=== PATIENT | male | born 1970 | race African-American/Black ===

== ENCOUNTER 2018-08-07 13:10 | Emergency (ER) | payer OTHER ==
[~2018-08-07] VITALS: Ht 175.3 cm; Wt 100.0 kg
--- NOTE | 2018-08-07 14:18 | REP ---
RIGHT KNEE SERIES: Five views of right knee performed. 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 No acute fracture or dislocation is seen. There is mild narrowing of the lateral patellofemoral joint. IMPRESSION: Bipartite patella, a developmental anomaly. No acute fracture visualized. Electronically Signed by Roland Olvera MD 08/09/2018 12:01 P
[2018-08-07 14:21] VITALS: BP 165/110
[2018-08-07] MEDS ORDERED: IBUP80TA PO (14:40)
== END 2018-08-07 14:47 | disposition home or self-care (01) ==
LOC: M ED 13:10
DX: M25.561 Pain in right knee (principal); I10 Essential (primary) hypertension; Z72.0 Tobacco use

== ENCOUNTER 2018-08-10 11:47 | Emergency (ER) | payer OTHER ==
[~2018-08-10] VITALS: Ht 180.3 cm; Wt 108.1 kg
[~2018-08-10 11:47] MED LIST: IBUP80TA PO
--- NOTE | 2018-08-10 12:36 | REP ---
Right lower extremity Duplex Doppler venous ultrasound: Real time compression and duplex Doppler interrogation of the right lower extremity deep venous system is performed. The right common femoral, superficial femoral and popliteal veins are fully compressible with transducer pressure and demonstrate normal spontaneous and phasic flow, without evidence of deep venous thrombosis. Impression: No evidence of deep venous thrombosis of the right lower extremity femoral popliteal venous system. Electronically Signed by Roland Olvera MD 08/10/2018 12:27 P
[2018-08-10 13:36] LABS: BASO % 0.4 % (0.0-1.0); EOS # 0.1 10^3/uL (0.0-0.50); EOS % 1.6 % (0.0-3.0); HEMATOCRIT 40.3 % (42.0-52.0); HEMOGLOBIN 13.5 g/dl (13.5-17.5); LYMPH # 1.5 10^3/uL (1.5-4.5); LYMPH % 19.8 % (24.0-44.0); MEAN CORPUSCULAR HEMOGLOBIN 29.5 pg (27.0-33.0); MEAN CORPUSCULAR HGB CONC 33.5 g/dl (32.0-36.5); MEAN CORPUSCULAR VOLUME 88.2 fl (80.0-96.0); MONO # 0.8 10^3/uL (0.0-0.8); MONO % 10.2 % (0.0-5.0); NEUTROPHILS # 5.1 10^3/uL (1.8-7.7); NEUTROPHILS % 67.5 % (36.0-66.0); PLATELET COUNT, AUTOMATED 203 10^3/uL (150-450); RED BLOOD COUNT 4.57 10^6/uL (4.30-6.10); WHITE BLOOD COUNT 7.6 10^3/uL (4.0-10.0)
[2018-08-10 13:43] LABS: BLOOD UREA NITROGEN 16 MG/DL (7-18); C REACTIVE PROTEIN QUANTITATIV 8.61 MG/DL (0.00-0.30); CALCIUM LEVEL 8.8 MG/DL (8.5-10.1); CARBON DIOXIDE LEVEL 26 MEQ/L (21-32); CHLORIDE LEVEL 106 MEQ/L (98-107); CREATININE FOR GFR 1.07 MG/DL (0.70-1.30); GLOMERULAR FILTRATION RATE > 60.0 (>60); GLUCOSE, FASTING 105 MG/DL (70-100); SODIUM LEVEL 138 MEQ/L (136-145); URIC ACID 7.3 MG/DL (3.5-7.2)
[2018-08-10 13:55] LABS: ERYTHROCYTE SEDIMENTATION RATE 61 mm/hr (0-15)
[2018-08-10] MEDS ORDERED: PRED20TA PO (14:22)
[2018-08-10] MEDS ORDERED: INDO50CA PO (14:22)
[2018-08-10 14:28] VITALS: BP 196/105
[2018-08-10] MEDS ORDERED: NORV5TAB PO (14:34)
== END 2018-08-10 14:51 | disposition home or self-care (01) ==
LOC: M ED 11:47
DX: M10.061 Idiopathic gout, right knee (principal)

== ENCOUNTER 2021-01-07 07:27 | Emergency (ER) | payer OTHER ==
[~2021-01-07] VITALS: Ht 175.3 cm; Wt 108.7 kg
[~2021-01-07 07:27] MED LIST changes: +INDO50CA91 PO; +NORV5TAB PO; +PRED20TA PO
--- NOTE | 2021-01-07 10:21 | REP ---
INDICATION: swelling/pain right great toe COMPARISON: None. TECHNIQUE: AP, lateral, bilateral oblique views right 1st toe. FINDINGS: Age-related changes are appreciated with subtle periarticular sclerosis at the metatarsophalangeal and interphalangeal levels with minimal joint space narrowing. No acute fracture or dislocation. No subcutaneous emphysema or foreign body. IMPRESSION: Essentially age-related changes at the joint spaces. <Electronically signed by Steve Martinez > 01/07/21 1019
--- NOTE | 2021-01-07 10:22 | REP ---
INDICATION: swelling/pain COMPARISON: 08/07/2018 TECHNIQUE: AP, lateral, bilateral oblique and sunrise views. FINDINGS: Congenital bipartite patella again noted. Increased sclerosis along the anterior and posterior patellar margin with minimal patellofemoral joint space narrowing. Visualized portions of the femur and tibia appear normal and the tibiofemoral joint space appears normal. No acute fracture or dislocation. No obvious effusion. IMPRESSION: Mild degenerative changes primarily involving the patella and patellofemoral joint space. <Electronically signed by Steve Martinez > 01/07/21 1017
[2021-01-07] MEDS ORDERED: COLCHICINE 0.6 MG TABLET PO ONE (10:35)
[2021-01-07 10:39] LABS: BASO % 0.3 % (0.0-1.0); EOS # 0.1 10^3/uL (0.0-0.5); EOS % 0.7 % (0.0-3.0); HEMATOCRIT 39.4 % (42.0-52.0); HEMOGLOBIN 12.9 g/dl (13.5-17.5); LYMPH # 1.7 10^3/uL (1.5-5.0); LYMPH % 15.7 % (24.0-44.0); MEAN CORPUSCULAR HGB CONC 32.7 g/dl (32.0-36.5); MEAN CORPUSCULAR VOLUME 91.6 fl (80.0-96.0); MONO # 1.2 10^3/uL (0.0-0.8); MONO % 11.6 % (2.0-8.0); NEUTROPHILS # 7.5 10^3/uL (1.5-8.5); NEUTROPHILS % 71.1 % (36.0-66.0); PLATELET COUNT, AUTOMATED 161 10^3/uL (150-450); WHITE BLOOD COUNT 10.5 10^3/uL (4.0-10.0)
[2021-01-07 11:04] LABS: ALBUMIN 3.4 GM/DL (3.2-5.2); BILIRUBIN,DIRECT 0.4 MG/DL (0.0-0.2); BILIRUBIN,TOTAL 1.3 MG/DL (0.2-1.0); C REACTIVE PROTEIN QUANTITATIV 12.7 MG/DL (0.00-0.30); TOTAL PROTEIN 7.3 GM/DL (6.4-8.2); URIC ACID 8.6 MG/DL (3.5-7.2)
[2021-01-07 11:35] LABS: ERYTHROCYTE SEDIMENTATION RATE 66 mm/hr (0-20)
[2021-01-07 11:37] VITALS: BP 172/98
[2021-01-07] MEDS ORDERED: COLC0.6T47 PO (12:02)
[2021-01-07] MEDS ORDERED: NAPR-837 PO (12:02)
[2021-01-07] MEDS ORDERED: DOXY1CAP62 PO (12:02)
== END 2021-01-07 12:16 | disposition home or self-care (01) ==
LOC: M ED 07:27
DX: L03.115 Cellulitis of right lower limb (principal); M10.071 Idiopathic gout, right ankle and foot; I10 Essential (primary) hypertension

== ENCOUNTER 2022-03-28 08:05 | Emergency (ER) | payer OTHER ==
[~2022-03-28] VITALS: Ht 185.4 cm; Wt 106.4 kg
[~2022-03-28 08:05] MED LIST changes: +COLC0.6T47 PO; +DOXY-443 PO; +NAPR-837 PO
[2022-03-28] MEDS ORDERED: AMLO1TAB24 PO (08:15)
[2022-03-28] MEDS ORDERED: LISI10TA22 PO (08:15)
[2022-03-28] MEDS ORDERED: LOSA100T8 PO (08:15)
[2022-03-28] MEDS ORDERED: CYCL5TAB PO (08:15)
[2022-03-28] MEDS ORDERED: IBUP-1114 PO (08:15)
[2022-03-28] MEDS ORDERED: NAPROXEN 250 MG TAB PO ONE (09:40)
[2022-03-28] MEDS ORDERED: PRED10TA2 PO (09:40)
[2022-03-28 10:13] VITALS: BP 160/87
== END 2022-03-28 10:30 | disposition home or self-care (01) ==
LOC: M ED 08:05
DX: M17.11 Unilateral primary osteoarthritis, right knee (principal); M22.2X1 Patellofemoral disorders, right knee; M10.072 Idiopathic gout, left ankle and foot; I10 Essential (primary) hypertension; F17.200 Nicotine dependence, unspecified, uncomplicated; Z79.899 Other long term (current) drug therapy; Z79.1 Long term (current) use of non-steroidal anti-inflammatories (NSAID)

== ENCOUNTER → 2022-05-31 | Outpatient (CLI) | payer OTHER ==
[~2022-05-31] MED LIST changes: +AMLO1TAB24 PO; +CYCL5TAB PO; +IBUP-1114 PO; +LISI10TA22 PO; +LOSA100T8 PO; +PRED10TA2 PO
[2022-05-31 16:12] LABS: ALKALINE PHOSPHATASE 57 U/L (46-116); ALT/SGPT 79 U/L (7.0-40); AST/SGOT 54 U/L (<34); BILIRUBIN,TOTAL 0.8 MG/DL (0.3-1.2); BLOOD UREA NITROGEN 19 MG/DL (9-23); CALCIUM LEVEL 9.6 MG/DL (8.5-10.1); CARBON DIOXIDE LEVEL 32 MMOL/L (20-31); CHLORIDE LEVEL 98 MMOL/L (98-107); CHOLESTEROL LEVEL 177 MG/DL (<200); CHOLESTEROL RISK RATIO 4.95 (<5); CREATININE FOR GFR 1.07 MG/DL (0.70-1.30); GLOMERULAR FILTRATION RATE > 60.0 (>56); GLUCOSE, FASTING 108 MG/DL (60-100); HDL CHOLESTEROL 35.7 MG/DL (>40); LDL CHOLESTEROL 76.5 MG/DL (<100); NON-HDL-C 141 MG/DL; POTASSIUM SERUM 4.3 MMOL/L (3.5-5.1); SODIUM LEVEL 137 MMOL/L (136-145); TOTAL PROTEIN 7.8 G/DL (5.7-8.2); TRIGLYCERIDES LEVEL 324 MG/DL (<150)
== END ==
LOC: M LAB 14:16
PROVIDERS: ATTEND Registered Nurse
DX: I10 Essential (primary) hypertension (principal)

== ENCOUNTER 2022-06-14 14:20 | Emergency (ER) | payer OTHER ==
[~2022-06-14] VITALS: Ht 182.9 cm; Wt 106.8 kg
[2022-06-14] MEDS ORDERED: ALLO100T (15:22)
[2022-06-14] MEDS ORDERED: AMLO1TAB25 (15:22)
[2022-06-14] MEDS ORDERED: ASPI-226 (15:22)
[2022-06-14] MEDS ORDERED: HYDR-3490 (15:22)
[2022-06-14] MEDS ORDERED: ATOR1TAB21 (15:22)
[2022-06-15] MEDS ORDERED: LIDOCAINE 5% (LIDODERM) PATCH TD ONE (00:40)
[2022-06-15] MEDS ORDERED: MORPHINE 10 MG/ML 1ML VIAL IM ONE (00:40)
[2022-06-15 01:50] VITALS: BP 186/94
[2022-06-15] MEDS ORDERED: PERC5TAB12 PO (01:54)
[2022-06-15] MEDS ORDERED: ASPE4PAD TOP (01:54)
== END 2022-06-15 02:28 | disposition home or self-care (01) ==
LOC: M ED 14:20
DX: S22.41XA Multiple fractures of ribs, right side, initial encounter for closed fracture (principal); W00.0XXA Fall on same level due to ice and snow, initial encounter; I10 Essential (primary) hypertension; E78.5 Hyperlipidemia, unspecified; F17.200 Nicotine dependence, unspecified, uncomplicated; Y92.410 Unspecified street and highway as the place of occurrence of the external cause; Z79.82 Long term (current) use of aspirin; Z79.84 Long term (current) use of oral hypoglycemic drugs; Z79.811 Long term (current) use of aromatase inhibitors; Z79.899 Other long term (current) drug therapy

== ENCOUNTER → 2022-08-12 | Outpatient (CLI) | payer OTHER ==
[~2022-08-12] MED LIST changes: +ALLO100T; +AMLO1TAB25; +ASPE4PAD TOP; +ASPI-226; +ATOR1TAB21; +HYDR-3490; +PERC5TAB12 PO
[2022-08-12 07:55] LABS: ALKALINE PHOSPHATASE 61 U/L (46-116); ALT/SGPT 69 U/L (7.0-40); AST/SGOT 48 U/L (<34); BLOOD UREA NITROGEN 16 MG/DL (9-23); CALCIUM LEVEL 9.2 MG/DL (8.5-10.1); CARBON DIOXIDE LEVEL 30 MMOL/L (20-31); CHLORIDE LEVEL 100 MMOL/L (98-107); CHOLESTEROL LEVEL 112 MG/DL (<200); CHOLESTEROL RISK RATIO 3.12 (<5); CREATININE FOR GFR 0.99 MG/DL (0.70-1.30); GLOMERULAR FILTRATION RATE > 60.0 (>56); GLUCOSE, FASTING 116 MG/DL (60-100); HDL CHOLESTEROL 35.8 MG/DL (>40); NON-HDL-C 76.2 MG/DL; POTASSIUM SERUM 3.6 MMOL/L (3.5-5.1); SODIUM LEVEL 139 MMOL/L (136-145); TOTAL PROTEIN 7.3 G/DL (5.7-8.2); TRIGLYCERIDES LEVEL 286 MG/DL (<150)
== END ==
LOC: M LAB 06:26
PROVIDERS: ATTEND Registered Nurse
DX: E78.2 Mixed hyperlipidemia (principal)

== ENCOUNTER 2022-08-25 11:24 | Emergency (ER) | payer OTHER ==
[~2022-08-25] VITALS: Ht 177.8 cm; Wt 109.4 kg
[2022-08-25] MEDS ORDERED: PERCOCET 5MG/325MG TAB PO ONE (12:20)
[2022-08-25 12:48] LABS: BASO % 0.2 % (0.0-1.0); EOS % 0.4 % (0.0-3.0); HEMATOCRIT 39.5 % (42.0-52.0); LYMPH # 1.7 10^3/uL (1.5-5.0); LYMPH % 15.5 % (24.0-44.0); MEAN CORPUSCULAR HEMOGLOBIN 29.7 pg (27.0-33.0); MEAN CORPUSCULAR HGB CONC 32.9 g/dl (32.0-36.5); MEAN CORPUSCULAR VOLUME 90.4 fl (80.0-96.0); MONO % 8.8 % (2.0-8.0); NEUTROPHILS # 8.1 10^3/uL (1.5-8.5); NEUTROPHILS % 74.6 % (36.0-66.0); PLATELET COUNT, AUTOMATED 197 10^3/uL (150-450); RED BLOOD COUNT 4.37 10^6/uL (4.30-6.10); WHITE BLOOD COUNT 10.8 10^3/uL (4.0-10.0)
[2022-08-25 13:12] LABS: URIC ACID 7.2 MG/DL (3.7-9.2)
[2022-08-25 13:16] LABS: BLOOD UREA NITROGEN 21 MG/DL (9-23); CALCIUM LEVEL 9.2 MG/DL (8.5-10.1); CARBON DIOXIDE LEVEL 28 MMOL/L (20-31); CHLORIDE LEVEL 105 MMOL/L (98-107); CREATININE FOR GFR 0.97 MG/DL (0.70-1.30); GLOMERULAR FILTRATION RATE > 60.0 (>56); GLUCOSE, FASTING 134 MG/DL (60-100); POTASSIUM SERUM 3.7 MMOL/L (3.5-5.1); SODIUM LEVEL 141 MMOL/L (136-145)
[2022-08-25] MEDS ORDERED: PRED20TA PO (14:35)
[2022-08-25] MEDS ORDERED: PERC5TAB12 PO (14:35)
[2022-08-25 14:38] LABS: ERYTHROCYTE SEDIMENTATION RATE 44 mm/hr (0-20)
[2022-08-25 14:51] VITALS: BP 186/105
== END 2022-08-25 14:53 | disposition home or self-care (01) ==
LOC: M ED 11:24
DX: M10.062 Idiopathic gout, left knee (principal); I10 Essential (primary) hypertension; E78.5 Hyperlipidemia, unspecified; Z79.82 Long term (current) use of aspirin; Z79.899 Other long term (current) drug therapy

== ENCOUNTER 2022-10-08 09:34 | Emergency (ER) | payer OTHER ==
[~2022-10-08] VITALS: Ht 177.8 cm; Wt 109.2 kg
[2022-10-08] MEDS ORDERED: LIDOCAINE 4% CREAM 5GM (LMX4) TOP ONE (11:45)
[2022-10-08] MEDS ORDERED: traMADol 50 MG TAB PO ONE (11:45)
[2022-10-08 12:52] VITALS: BP 176/109
[2022-10-08] MEDS ORDERED: LIDOCAINE 1% MDV 20ML VIAL SC ONE (14:15)
[2022-10-08 14:27] LABS: BASO % 0.3 % (0.0-1.0); EOS % 0.2 % (0.0-3.0); HEMOGLOBIN 13.6 g/dl (13.5-17.5); LYMPH # 1.5 10^3/uL (1.5-5.0); LYMPH % 11.4 % (24.0-44.0); MEAN CORPUSCULAR HGB CONC 33.2 g/dl (32.0-36.5); MEAN CORPUSCULAR VOLUME 90.3 fl (80.0-96.0); MONO # 1.2 10^3/uL (0.0-0.8); MONO % 8.8 % (2.0-8.0); NEUTROPHILS # 10.4 10^3/uL (1.5-8.5); NEUTROPHILS % 79.1 % (36.0-66.0); PLATELET COUNT, AUTOMATED 235 10^3/uL (150-450); RED BLOOD COUNT 4.54 10^6/uL (4.30-6.10); WHITE BLOOD COUNT 13.1 10^3/uL (4.0-10.0)
[2022-10-08 14:41] LABS: ERYTHROCYTE SEDIMENTATION RATE 57 mm/hr (0-20)
[2022-10-08 14:53] LABS: BLOOD UREA NITROGEN 13 MG/DL (9-23); CALCIUM LEVEL 9.1 MG/DL (8.5-10.1); CARBON DIOXIDE LEVEL 28 MMOL/L (20-31); CHLORIDE LEVEL 102 MMOL/L (98-107); GLOMERULAR FILTRATION RATE > 60.0 (>56); GLUCOSE, FASTING 123 MG/DL (60-100); SODIUM LEVEL 136 MMOL/L (136-145); URIC ACID 6.5 MG/DL (3.7-9.2)
[2022-10-08] MEDS ORDERED: cefTRIAXone SOD 1GM VIAL IM ONE (15:10)
[2022-10-08] MEDS ORDERED: LIDOCAINE 1% SDV 5ML VIAL DILUENT ONE (15:10)
[2022-10-08] MEDS ORDERED: AMOX875T2 PO (15:38)
[2022-10-08] MEDS ORDERED: TRAM50TA2 PO (15:38)
[2022-10-08] MEDS ORDERED: DICL1GEL3 TOP (15:38)
== END 2022-10-08 15:56 | disposition home or self-care (01) ==
LOC: M ED 09:34
DX: M25.462 Effusion, left knee (principal); M25.562 Pain in left knee; D72.829 Elevated white blood cell count, unspecified; Z79.899 Other long term (current) drug therapy; Z79.82 Long term (current) use of aspirin
CPT/HCPCS: 20600; 73564; 73700; 80048; 84550; 85025; 85652; 86140; 96372; 99283; J0696

== ENCOUNTER 2022-11-16 08:45 | Emergency (ER) | payer OTHER ==
[~2022-11-16] VITALS: Ht 185.4 cm; Wt 110.3 kg
[~2022-11-16 08:45] MED LIST changes: +AMOX875T2 PO; +DICL1GEL3 TOP; +TRAM50TA2 PO
[2022-11-16 08:46] VITALS: O2SAT 99
[2022-11-16] MEDS ORDERED: DEBR6.5S4 OTIC (11:16)
[2022-11-16 11:19] VITALS: BP 177/90; TEMP 98.1
== END 2022-11-16 11:23 | disposition home or self-care (01) ==
LOC: M ED 08:45
DX: H61.23 Impacted cerumen, bilateral (principal); I10 Essential (primary) hypertension; E78.5 Hyperlipidemia, unspecified; Z79.899 Other long term (current) drug therapy; Z79.82 Long term (current) use of aspirin; Z79.52 Long term (current) use of systemic steroids

== ENCOUNTER → 2022-11-26 | Outpatient (REF) | payer OTHER ==
[~2022-11-26] MED LIST changes: +DEBR6.5S4 OTIC
[2022-11-26 19:02] LABS: SOURCE, BODY FLUID LFT KNEE; SYNOVIAL FLUID COLOR PALE YELLOW (COLORLESS)
[2022-11-26 19:03] LABS: CRYSTALS, BODY FLUID NONE SEEN (NONE SEEN); SOURCE, BODY FLUID CRYSTALS LFT KNEE
== END ==
LOC: M LAB REF 16:44
PROVIDERS: ATTEND Physician Assistant
DX: M25.462 Effusion, left knee (principal)

== ENCOUNTER → 2023-06-07 | Outpatient (CLI) | payer OTHER ==
[~2023-06-07] MED LIST changes: +DICL100G10 TOP; -DICL1GEL3 TOP
[2023-06-07 09:23] LABS: ALBUMIN 3.9 G/DL (3.2-5.2); ALKALINE PHOSPHATASE 51 U/L (46-116); ALT/SGPT 59 U/L (7.0-40); AST/SGOT 40 U/L (<34); BILIRUBIN,TOTAL 0.7 MG/DL (0.3-1.2); BLOOD UREA NITROGEN 14 MG/DL (9-23); CALCIUM LEVEL 9.3 MG/DL (8.5-10.1); CARBON DIOXIDE LEVEL 31 MMOL/L (20-31); CHLORIDE LEVEL 103 MMOL/L (98-107); CHOLESTEROL LEVEL 143 MG/DL (<200); CREATININE FOR GFR 0.93 MG/DL (0.70-1.30); GLOMERULAR FILTRATION RATE > 60.0 (>56); GLUCOSE, FASTING 128 MG/DL (60-100); HDL CHOLESTEROL 36.6 MG/DL (>40); LDL CHOLESTEROL 63.6 MG/DL (<100); NON-HDL-C 106.4 MG/DL; POTASSIUM SERUM 3.7 MMOL/L (3.5-5.1); SODIUM LEVEL 140 MMOL/L (136-145); TOTAL PROTEIN 7.2 G/DL (5.7-8.2); TRIGLYCERIDES LEVEL 214 MG/DL (<150)
[2023-06-07 09:31] LABS: BASO % 0.4 % (0.0-1.0); EOS # 0.1 10^3/uL (0.0-0.5); EOS % 2.1 % (0.0-3.0); HEMATOCRIT 41.2 % (42.0-52.0); HEMOGLOBIN 13.6 g/dl (13.5-17.5); LYMPH # 2.3 10^3/uL (1.5-5.0); LYMPH % 33.7 % (24.0-44.0); MEAN CORPUSCULAR HEMOGLOBIN 29.4 pg (27.0-33.0); MEAN CORPUSCULAR VOLUME 89.2 fl (80.0-96.0); MONO # 0.8 10^3/uL (0.0-0.8); MONO % 11.1 % (2.0-8.0); NEUTROPHILS # 3.5 10^3/uL (1.5-8.5); NEUTROPHILS % 52.4 % (36.0-66.0); PLATELET COUNT, AUTOMATED 202 10^3/uL (150-450); RED BLOOD COUNT 4.62 10^6/uL (4.30-6.10); WHITE BLOOD COUNT 6.8 10^3/uL (4.0-10.0)
== END ==
LOC: M LAB 08:19
PROVIDERS: ATTEND Registered Nurse
DX: I10 Essential (primary) hypertension (principal); E78.2 Mixed hyperlipidemia

== ENCOUNTER → 2023-11-08 | Outpatient (CLI) | payer OTHER ==
[~2023-11-08] MED LIST changes: +DOXY-323 PO; -DOXY-443 PO
[2023-11-08 11:14] LABS: HEMOGLOBIN A1c 5.9 % (4.0-6.0)
[2023-11-08 11:33] LABS: ALBUMIN 3.9 G/DL (3.2-5.2); ALKALINE PHOSPHATASE 57 U/L (46-116); ALT/SGPT 52 U/L (7.0-40); AST/SGOT 52 U/L (<34); BILIRUBIN,TOTAL 0.9 MG/DL (0.3-1.2); BLOOD UREA NITROGEN 22 MG/DL (9-23); CALCIUM LEVEL 9.1 MG/DL (8.5-10.1); CARBON DIOXIDE LEVEL 31 MMOL/L (20-31); CHLORIDE LEVEL 104 MMOL/L (98-107); CHOLESTEROL LEVEL 121 MG/DL (<200); CHOLESTEROL RISK RATIO 3.45 (<5); CREATININE FOR GFR 1.01 MG/DL (0.70-1.30); GLOMERULAR FILTRATION RATE > 60.0 (>56); GLUCOSE, FASTING 122 MG/DL (60-100); LDL CHOLESTEROL 27.2 MG/DL (<100); POTASSIUM SERUM 4.1 MMOL/L (3.5-5.1); SODIUM LEVEL 140 MMOL/L (136-145); TOTAL PROTEIN 7.3 G/DL (5.7-8.2); TRIGLYCERIDES LEVEL 294 MG/DL (<150)
== END ==
LOC: M LAB 10:09
PROVIDERS: ATTEND Registered Nurse
DX: R73.03 Prediabetes (principal); E78.2 Mixed hyperlipidemia

== ENCOUNTER → 2023-11-08 | Outpatient (CLI) | payer OTHER ==
[2023-11-08 11:14] LABS: HEMOGLOBIN A1c 5.9 % (4.0-6.0)
[2023-11-08 11:35] LABS: ALBUMIN 3.9 G/DL (3.2-5.2); ALKALINE PHOSPHATASE 56 U/L (46-116); ALT/SGPT 52 U/L (7.0-40); AST/SGOT 48 U/L (<34); BILIRUBIN,TOTAL 0.9 MG/DL (0.3-1.2); BLOOD UREA NITROGEN 22 MG/DL (9-23); CARBON DIOXIDE LEVEL 30 MMOL/L (20-31); CHLORIDE LEVEL 103 MMOL/L (98-107); CHOLESTEROL LEVEL 121 MG/DL (<200); CHOLESTEROL RISK RATIO 3.46 (<5); CREATININE FOR GFR 0.99 MG/DL (0.70-1.30); GLOMERULAR FILTRATION RATE > 60.0 (>56); GLUCOSE, FASTING 122 MG/DL (60-100); HDL CHOLESTEROL 34.9 MG/DL (>40); LDL CHOLESTEROL 27.3 MG/DL (<100); MAGNESIUM LEVEL 1.9 MG/DL (1.8-2.4); NON-HDL-C 86.1 MG/DL; POTASSIUM SERUM 3.9 MMOL/L (3.5-5.1); SODIUM LEVEL 139 MMOL/L (136-145); TOTAL PROTEIN 7.3 G/DL (5.7-8.2); TRIGLYCERIDES LEVEL 294 MG/DL (<150)
[2023-11-08 11:55] LABS: THYROID STIMULATING HORMONE 0.722 uIU/ML (0.55-4.78)
[2023-11-09 06:08] LABS: LDL DIRECT 47 mg/dL (<100)
== END ==
LOC: M LAB 10:11
PROVIDERS: ATTEND Internal Medicine Cardiovascular Disease
DX: I11.0 Hypertensive heart disease with heart failure (principal); E66.9 Obesity, unspecified; E78.2 Mixed hyperlipidemia; Z13.29 Encounter for screening for other suspected endocrine disorder; R06.02 Shortness of breath; I50.9 Heart failure, unspecified; I48.91 Unspecified atrial fibrillation

== ENCOUNTER → 2024-02-07 | Outpatient (CLI) | payer OTHER | LOC: M RAD 07:24 | PROVIDERS: ATTEND Internal Medicine Cardiovascular Disease | DX: I11.9 Hypertensive heart disease without heart failure (principal) ==

== ENCOUNTER → 2024-04-20 | Outpatient (CLI) | payer OTHER ==
[~2024-04-20] MED LIST changes: -CYCL5TAB PO; +CYCL5TAB4 PO; -DOXY-323 PO; +DOXY-441 PO
[2024-04-20 10:13] LABS: BASO % 0.4 % (0.0-1.0); EOS # 0.1 10^3/uL (0.0-0.5); EOS % 1.5 % (0.0-3.0); HEMATOCRIT 39.9 % (42.0-52.0); HEMOGLOBIN 13.6 g/dl (13.5-17.5); LYMPH # 1.8 10^3/uL (1.5-5.0); LYMPH % 25.7 % (24.0-44.0); MEAN CORPUSCULAR HEMOGLOBIN 30.6 pg (27.0-33.0); MEAN CORPUSCULAR HGB CONC 34.1 g/dl (32.0-36.5); MEAN CORPUSCULAR VOLUME 89.7 fl (80.0-96.0); MONO # 0.7 10^3/uL (0.0-0.8); MONO % 10.3 % (2.0-8.0); NEUTROPHILS # 4.4 10^3/uL (1.5-8.5); NEUTROPHILS % 61.8 % (36.0-66.0); PLATELET COUNT, AUTOMATED 230 10^3/uL (150-450); RED BLOOD COUNT 4.45 10^6/uL (4.30-6.10); WHITE BLOOD COUNT 7.1 10^3/uL (4.0-10.0)
[2024-04-20 10:22] LABS: HEMOGLOBIN A1c 6.1 % (4.0-6.0)
[2024-04-20 10:39] LABS: ALBUMIN 3.5 G/DL (3.2-5.2); ALKALINE PHOSPHATASE 48 U/L (40-129); ALT/SGPT 35 U/L (7.0-40); AST/SGOT 25 U/L (<34); BILIRUBIN,TOTAL 0.7 MG/DL (0.3-1.2); BLOOD UREA NITROGEN 14 MG/DL (9-23); CALCIUM LEVEL 9.3 MG/DL (8.5-10.1); CARBON DIOXIDE LEVEL 30 MMOL/L (20-31); CHLORIDE LEVEL 103 MMOL/L (98-107); CHOLESTEROL LEVEL 170 MG/DL (<200); CHOLESTEROL RISK RATIO 4.85 (<5); CREATININE FOR GFR 1.02 MG/DL (0.70-1.30); GLOMERULAR FILTRATION RATE > 60.0 (>56); GLUCOSE, FASTING 122 MG/DL (60-100); POTASSIUM SERUM 3.7 MMOL/L (3.5-5.1); SODIUM LEVEL 140 MMOL/L (136-145); TOTAL PROTEIN 7.3 G/DL (5.7-8.2); TRIGLYCERIDES LEVEL 472 MG/DL (<150)
[2024-04-20 11:19] LABS: HEPATITIS C VIRUS ABY INDEX 0.17 INDEX (<0.8)
== END ==
LOC: M LAB 09:31
PROVIDERS: ATTEND Registered Nurse
DX: R73.03 Prediabetes (principal); E78.2 Mixed hyperlipidemia; Z11.59 Encounter for screening for other viral diseases

== ENCOUNTER 2024-11-27 10:40 | Emergency (ER) | payer OTHER ==
[~2024-11-27] VITALS: Ht 185.4 cm; Wt 109.2 kg
[~2024-11-27 10:40] MED LIST changes: -ALLO100T; +ALLO100T PO
[2024-11-27 11:46] LABS: BASO # 0.0 10^3/uL (0.0-0.2); BASO % 0.3 % (0.0-1.0); EOS # 0.1 10^3/uL (0.0-0.5); EOS % 0.7 % (0.0-3.0); LYMPH # 1.5 10^3/uL (1.5-5.0); LYMPH % 14.8 % (24.0-44.0); MONO # 1.0 10^3/uL (0.0-0.8); MONO % 9.8 % (2.0-8.0); NEUTROPHILS # 7.5 10^3/uL (1.5-8.5); NEUTROPHILS % 73.9 % (36.0-66.0); PLATELET COUNT, AUTOMATED 253 10^3/uL (150-450)
[2024-11-27 11:51] LABS: ERYTHROCYTE SEDIMENTATION RATE 84 mm/hr (0-20)
[2024-11-27 12:28] LABS: C REACTIVE PROTEIN QUANTITATIV 5.82 MG/DL (<1.0)
[2024-11-27 12:29] LABS: ALT/SGPT 34 U/L (7.0-40); AST/SGOT 31 U/L (<34); CALCIUM LEVEL 9.2 MG/DL (8.5-10.1); CARBON DIOXIDE LEVEL 28 MMOL/L (20-31); CHLORIDE LEVEL 102 MMOL/L (98-107); CREATININE FOR GFR 0.97 MG/DL (0.70-1.30); GLOMERULAR FILTRATION RATE > 90.0 (>56); POTASSIUM SERUM 4.1 MMOL/L (3.5-5.1); SODIUM LEVEL 139 MMOL/L (136-145)
[2024-11-27] MEDS: KETOROLAC 30 MG/ML 1 ML VIAL IV ONE (13:30)
[2024-11-27 14:24] VITALS: TEMP 98.4; O2SAT 98
[2024-11-27 14:59] VITALS: BP 200/110
[2024-11-27] MEDS: amLODIPine 10 MG TAB PO ONE (14:59)
[2024-11-27] MEDS ORDERED: FARX1TAB3 PO (15:21)
[2024-11-27] MEDS ORDERED: ENTR1TAB7 PO (15:22)
[2024-11-27] MEDS ORDERED: ZOLO100T PO (15:23)
[2024-11-27] MEDS ORDERED: HOME MED LIST COMPLETE! XX SCH (15:25)
[2024-11-27 16:12] VITALS: BP 180/96
[2024-11-27] MEDS ORDERED: IBUP80TA PO (16:16)
== END 2024-11-27 16:18 | disposition home or self-care (01) ==
LOC: M ED 10:40
DX: M71.21 Synovial cyst of popliteal space [Baker], right knee (principal); I10 Essential (primary) hypertension; Z79.899 Other long term (current) drug therapy
CPT/HCPCS: 73564; 80053; 83605; 84550; 85025; 85652; 86140; 87040; 93971; 96374; 99284; J1885

== ENCOUNTER → 2024-11-30 | Outpatient (REF) | payer OTHER ==
[~2024-11-30] MED LIST changes: +ENTR1TAB7 PO; +FARX1TAB3 PO; +ZOLO100T PO
[2024-11-30 18:07] LABS: CRYSTALS, BODY FLUID URIC ACID (NONE SEEN); SOURCE, BODY FLUID RT KNEE; SOURCE, BODY FLUID CRYSTALS RT KNEE
== END ==
LOC: M LAB REF 16:55
PROVIDERS: ATTEND Orthopaedic Surgery
DX: M25.462 Effusion, left knee (principal)

== ENCOUNTER → 2025-01-23 | Outpatient (CLI) | payer OTHER ==
[2025-01-23 10:56] LABS: BASO # 0.0 10^3/uL (0.0-0.2); BASO % 0.4 % (0.0-1.0); EOS # 0.1 10^3/uL (0.0-0.5); EOS % 1.8 % (0.0-3.0); LYMPH # 1.3 10^3/uL (1.5-5.0); LYMPH % 23.4 % (24.0-44.0); MONO # 0.5 10^3/uL (0.0-0.8); MONO % 8.6 % (2.0-8.0); NEUTROPHILS # 3.7 10^3/uL (1.5-8.5); NEUTROPHILS % 65.4 % (36.0-66.0); PLATELET COUNT, AUTOMATED 223 10^3/uL (150-450)
[2025-01-23 11:00] LABS: ERYTHROCYTE SEDIMENTATION RATE 31 mm/hr (0-20)
[2025-01-23 11:27] LABS: ESTIMATED AVERAGE GLUCOSE 128.0 MG/DL (60-110)
[2025-01-23 11:31] LABS: C REACTIVE PROTEIN QUANTITATIV 0.75 MG/DL (<1.0)
[2025-01-23 11:32] LABS: ALT/SGPT 40 U/L (7.0-40); AST/SGOT 31 U/L (<34); CALCIUM LEVEL 9.6 MG/DL (8.5-10.1); CARBON DIOXIDE LEVEL 29 MMOL/L (20-31); CHLORIDE LEVEL 104 MMOL/L (98-107); CREATININE FOR GFR 0.95 MG/DL (0.70-1.30); GLOMERULAR FILTRATION RATE > 90.0 (>56); POTASSIUM SERUM 3.6 MMOL/L (3.5-5.1); SODIUM LEVEL 146 MMOL/L (136-145)
== END ==
LOC: M LAB 10:24
PROVIDERS: ATTEND Registered Nurse
DX: M10.9 Gout, unspecified (principal); I10 Essential (primary) hypertension